=== PATIENT | male | born 1970 | race Hispanic/Latino ===

== ENCOUNTER 2023-10-08 12:22 | Inpatient (IN) | payer BC, OTHER ==
[~2023-10-08 12:22] MED LIST: Iopamidol-370 76% 500 ML MDV (1 ML CHARGE) ONE
[2023-10-08] MEDS ORDERED: Atropine Sulfate 1 mg/10 ml Syringe ONE (12:32)
[2023-10-08] MEDS ORDERED: Aspirin Chewable 81 MG TAB ONE (12:35)
[2023-10-08] MEDS ORDERED: Ondansetron PF 4 MG/2 ML Vial ONE (12:35)
[2023-10-08] MEDS ORDERED: fentaNYL 50 mcg/mL 1 mL Vial ONE (12:58)
[2023-10-08 12:59] LABS: #Basophils 0.1 thou/uL (0.0-0.2); #Eosinphils 0.8 thou/uL (0.0-0.7); #Monocytes 0.7 thou/uL (0.11-0.59); #Neutrophils 7.2 thou/uL (1.40-6.50); %Basophils 0.8 % (0.0-1.0); %Eosinophils 6.9 % (0.0-10.0); %Monocytes 6.4 % (0.0-10.0); %Neutrophils 63.3 % (42.0-75.0); Hematocrit 51.3 % (42.0-52.0); Hemoglobin 17.8 g/dL (14.0-18.0); Mean Corpuscular HGB CONC 34.7 g/dL (32.0-36.0); Mean Corpuscular Hemoglobin 32.1 pg (27.0-31.0); Mean Corpuscular Volume 92.4 fl (78.0-98.0); Mean Platelet Volume 9.2 fL (7.4-10.4); Platelet Count 289 10x3/uL (130-400); RBC Distribution Width 13.3 % (11.5-14.5); Red Blood Cell (RBC) Count 5.55 mill/uL (4.70-6.10); White Blood Cell (WBC) Count 11.4 10x3/uL (4.8-10.8)
[2023-10-08] MEDS ORDERED: methylPREDNISolone Sod Succ 40 MG VIAL ONE (13:06)
[2023-10-08] MEDS ORDERED: Famotidine/PF 20 mg/2ml Vial ONE (13:06)
[2023-10-08] MEDS ORDERED: diphenhydrAMINE 50 MG/ML VIAL ONE (13:06)
[2023-10-08 13:19] LABS: ALT (SGPT) 13 U/L (8-55); AST (SGOT) 20 U/L (5-34); Albumin 4.6 g/dL (3.5-5.0); Alkaline Phosphatase 70 U/L (40-110); Anion Gap 14 mmol/L (10-20); BUN (Urea Nitrogen) 10 mg/dL (8.4-25.7); Calc. Creatinine Clearance 0 mL/min (70-130); Calcium 9.9 mg/dL (7.8-10.44); Carbon Dioxide 23 mmol/L (22-29); Chloride 103 mmol/L (98-107); Estimated GFR 93; Globulin 3.3 g/dL (2.4-3.5); Glucose 145 mg/dL (70-105); Lipase 32 U/L (8-78); Protein, Total 7.9 g/dL (6.0-8.3); Sodium 136 mmol/L (136-145)
[2023-10-08 13:33] LABS: Acetaminophen Less than 10 mcg/mL (10.0-30.0); Alcohol Less than 10.0 mg/dL (Less than 10); Magnesium 2.2 mg/dL (1.6-2.6); Salicylate Less than 8.0 mg/dL (15.0-30.0)
[2023-10-08 13:57] LABS: PTT 29.8 sec (22.9-36.1); Prothrombin Time 13.4 sec (12.0-14.7)
[2023-10-08] MEDS ORDERED: Senokot S 8.6-50 MG TAB PO PRN (14:41)
[2023-10-08] MEDS ORDERED: Lorazepam 1 MG TAB PO PRN (14:41)
[2023-10-08] MEDS ORDERED: Bisacodyl 5 MG TAB PO PRN (14:41)
[2023-10-08] MEDS ORDERED: Ondansetron ODT 4 MG TAB PO PRN ×2 (14:41)
[2023-10-08] MEDS ORDERED: Acetaminophen 650 MG Suppository PR PRN (14:41)
[2023-10-08] MEDS ORDERED: Ondansetron PF 4 MG/2 ML Vial IVP PRN (14:41)
[2023-10-08] MEDS ORDERED: Guaifenesin DM 100-10/5 ML UDCUP PO PRN (14:41)
[2023-10-08] MEDS ORDERED: Acetaminophen 325 MG TAB PO PRN (14:41)
[2023-10-08] MEDS ORDERED: Lorazepam 2 MG/ML VIAL IM PRN (14:41)
[2023-10-08] MEDS ORDERED: Bisacodyl 10 MG SUPP PR PRN (14:41)
[2023-10-08] MEDS ORDERED: Electrolyte Replacement Protocol 1 EACH FS SCH (14:45)
[2023-10-08 17:17] LABS: Lactic Acid 2.2 mmol/L (0.5-2.2)
[2023-10-08] MEDS: Sodium Chloride 0.9% 1,000 ML IV SCH (17:24)
[2023-10-08] MEDS: Thiamine HCl 200 MG/2 ML VIAL SLOW IVP SCH (17:24)
[2023-10-08] MEDS: Lorazepam 1 MG TAB PO SCH (17:24)
[2023-10-08 17:29] LABS: Critical Call Chem Troponin I NUR.SM29 @1729; Troponin I 0.366 ng/mL (< 0.028)
[2023-10-08 18:03] VITALS: BMI 27.9
[2023-10-08] MEDS: Enoxaparin 100 MG (1 mL) SYRINGE SC SCH (18:23)
[2023-10-08] MEDS: Multivit, Therapeutic 1 TAB PO SCH (21:31)
[2023-10-08] MEDS: Folic Acid 1 MG TAB PO SCH (21:31)
[2023-10-08 22:33] LABS: Critical Call Chem Troponin I NUR.CL11@2230; Troponin I 0.565 ng/mL (< 0.028)
[2023-10-09 05:13] LABS: #Eosinphils 0.1 thou/uL (0.0-0.7); #Monocytes 0.6 thou/uL (0.11-0.59); %Basophils 0.4 % (0.0-1.0); %Eosinophils 0.6 % (0.0-10.0); %Lymphocytes 19.9 % (21.0-51.0); %Monocytes 6.9 % (0.0-10.0); %Neutrophils 71.8 % (42.0-75.0); Hematocrit 45.2 % (42.0-52.0); Hemoglobin 15.9 g/dL (14.0-18.0); Mean Corpuscular HGB CONC 35.2 g/dL (32.0-36.0); Mean Corpuscular Hemoglobin 31.9 pg (27.0-31.0); Mean Corpuscular Volume 90.8 fl (78.0-98.0); Mean Platelet Volume 9.1 fL (7.4-10.4); Platelet Count 214 10x3/uL (130-400); RBC Distribution Width 13.2 % (11.5-14.5); Red Blood Cell (RBC) Count 4.98 mill/uL (4.70-6.10); White Blood Cell (WBC) Count 8.4 10x3/uL (4.8-10.8)
[2023-10-09 06:10] LABS: ALT (SGPT) 10 U/L (8-55); AST (SGOT) 20 U/L (5-34); Albumin 3.5 g/dL (3.5-5.0); Alkaline Phosphatase 57 U/L (40-110); Anion Gap 17 mmol/L (10-20); BUN (Urea Nitrogen) 10 mg/dL (8.4-25.7); Bilirubin, Total 0.7 mg/dL (0.2-1.2); Calc. Creatinine Clearance 144 mL/min (70-130); Calcium 8.6 mg/dL (7.8-10.44); Carbon Dioxide 16 mmol/L (22-29); Chloride 110 mmol/L (98-107); Estimated GFR 109; Globulin 2.6 g/dL (2.4-3.5); Glucose 89 mg/dL (70-105); Magnesium 1.7 mg/dL (1.6-2.6); Phosphorus 3.8 mg/dL (2.3-4.7); Protein, Total 6.1 g/dL (6.0-8.3); Sodium 139 mmol/L (136-145)
[2023-10-09] MEDS: Magnesium 2 GM/50 ML(in water) 2 GM in Premix 1 BAG IVPB SCH (08:50)
[2023-10-09] MEDS: Enoxaparin 100 MG (1 mL) SYRINGE SC SCH (08:51)
[2023-10-09] MEDS ORDERED: Enoxaparin 40 MG (0.4 mL) SYRINGE SC SCH (09:00)
[2023-10-09] MEDS ORDERED: Lorazepam 1 MG TAB PO PRN (14:41)
[2023-10-09] MEDS ORDERED: Communication Order-Pharmacy FS SCH (16:15)
[2023-10-09] MEDS ORDERED: CATH FS SCH ×2 (18:00)
[2023-10-09] MEDS: Aspirin 81 mg Enteric Coated Tablet PO SCH (21:23)
[2023-10-09] MEDS: HYDROcodone/Acetaminophen 7.5/325 mg Tablet PO PRN (21:23)
[2023-10-09] MEDS: Nitroglycerin 2% Ointment 1 INCH/1 GM Packet TOP SCH (21:23)
[2023-10-10 01:00] LABS: Amphetamine Not Detected (NotDetected); Barbiturates Screen Not Detected (NotDetected); Benzodiazepine Screen Not Detected (NotDetected); Cocaine Metabolite Screen Not Detected (NotDetected); Methadone Not Detected (NotDetected); Methamphetamine Not Detected (NotDetected); Opiate Screen Not Detected (NotDetected); Oxycodone Screen Not Detected (NotDetected); Phencyclidine (PCP) Not Detected (NotDetected); THC/Cannabinoid Screen Detected (NotDetected); Tricyclic Screen Not Detected (NotDetected)
[2023-10-10 04:28] LABS: #Basophils 0.1 thou/uL (0.0-0.2); #Eosinphils 0.4 thou/uL (0.0-0.7); #Monocytes 0.5 thou/uL (0.11-0.59); #Neutrophils 3.1 thou/uL (1.40-6.50); %Eosinophils 6.6 % (0.0-10.0); %Neutrophils 52.1 % (42.0-75.0); Hematocrit 46.7 % (42.0-52.0); Hemoglobin 16.1 g/dL (14.0-18.0); Mean Corpuscular HGB CONC 34.5 g/dL (32.0-36.0); Mean Corpuscular Volume 92.8 fl (78.0-98.0); Mean Platelet Volume 9.1 fL (7.4-10.4); Platelet Count 239 10x3/uL (130-400); RBC Distribution Width 13.6 % (11.5-14.5); Red Blood Cell (RBC) Count 5.03 mill/uL (4.70-6.10)
[2023-10-10 05:01] LABS: ALT (SGPT) 14 U/L (8-55); AST (SGOT) 19 U/L (5-34); Albumin 3.9 g/dL (3.5-5.0); Alkaline Phosphatase 56 U/L (40-110); Anion Gap 12 mmol/L (10-20); BUN (Urea Nitrogen) 13 mg/dL (8.4-25.7); Bilirubin, Total 0.7 mg/dL (0.2-1.2); Calc. Creatinine Clearance 133 mL/min (70-130); Carbon Dioxide 21 mmol/L (22-29); Cardiac Risk 4.7 (Less than 4.5); Chloride 110 mmol/L (98-107); Cholesterol 225 mg/dl (< 200 Desired); Estimated GFR 106; Globulin 2.5 g/dL (2.4-3.5); Glucose 88 mg/dL (70-105); HDL Cholesterol 48 mg/dL (>60 Neg Risk); LDL Cholesterol, Calculated 155 mg/dL; Potassium 3.9 mmol/L (3.5-5.1); Protein, Total 6.4 g/dL (6.0-8.3); Sodium 139 mmol/L (136-145); Triglycerides 110 mg/dL (Less than 150)
[2023-10-10 05:07] LABS: Critical Call Chem Troponin I NUR.CL11@0507; Troponin I 0.433 ng/mL (< 0.028)
[2023-10-10] MEDS: Sodium Chloride 0.9% 1,000 ML IV SCH ×2 (06:05→15:17)
[2023-10-10] MEDS ORDERED: Heparin 10,000 UNITS/ 10 ML VIAL ONE (06:06)
[2023-10-10] MEDS ORDERED: Lidocaine 1% (PF) 30 ML VIAL ONE (06:06)
[2023-10-10] MEDS ORDERED: fentaNYL 50 mcg/mL 1 mL Vial ONE (07:05)
[2023-10-10] MEDS ORDERED: Midazolam HCl 2 mg/2 ml Vial ONE (07:05)
[2023-10-10] MEDS ORDERED: Protamine Sulfate 50 MG/5 ML VIAL ONE (07:09)
[2023-10-10] MEDS ORDERED: TICAGRELOR 90 MG TABLET ONE (07:41)
[2023-10-10] MEDS ORDERED: Nitroglycerin 0.4 MG TAB (25 Tab Bottle) SL PRN (08:33)
[2023-10-10] MEDS: TICAGRELOR 90 MG TABLET PO SCH (09:35)
[2023-10-10] MEDS: Aspirin 81 mg Enteric Coated Tablet PO SCH (09:37)
[2023-10-10] MEDS: Aspirin Chewable 81 MG TAB PO SCH (09:37)
[2023-10-10] MEDS ORDERED: Morphine 2 MG/ML VIAL ONE (11:07)
[2023-10-10] MEDS: Morphine 2 MG/ML VIAL SLOW IVP PRN (11:10)
[2023-10-10] MEDS ORDERED: Iopamidol 370 76% 100 ML VIAL ONE (12:47)
[2023-10-10] MEDS ORDERED: Lorazepam 1 MG TAB PO PRN (14:41)
[2023-10-10] MEDS: Lorazepam 0.5 MG TAB PO SCH (15:04)
[2023-10-10] MEDS: Atorvastatin Calcium 40 MG TAB PO SCH (21:00)
[2023-10-11 04:52] LABS: #Basophils 0.1 thou/uL (0.0-0.2); #Eosinphils 0.5 thou/uL (0.0-0.7); #Monocytes 0.8 thou/uL (0.11-0.59); %Basophils 0.8 % (0.0-1.0); %Eosinophils 6.6 % (0.0-10.0); %Lymphocytes 17.9 % (21.0-51.0); %Monocytes 9.7 % (0.0-10.0); %Neutrophils 64.6 % (42.0-75.0); Hematocrit 48.5 % (42.0-52.0); Hemoglobin 16.7 g/dL (14.0-18.0); Mean Corpuscular HGB CONC 34.4 g/dL (32.0-36.0); Mean Corpuscular Hemoglobin 31.7 pg (27.0-31.0); Mean Corpuscular Volume 92.2 fl (78.0-98.0); Mean Platelet Volume 9.1 fL (7.4-10.4); Platelet Count 235 10x3/uL (130-400); RBC Distribution Width 13.4 % (11.5-14.5); Red Blood Cell (RBC) Count 5.26 mill/uL (4.70-6.10); White Blood Cell (WBC) Count 7.8 10x3/uL (4.8-10.8)
[2023-10-11 05:07] LABS: ALT (SGPT) 13 U/L (8-55); AST (SGOT) 23 U/L (5-34); Albumin 3.8 g/dL (3.5-5.0); Alkaline Phosphatase 59 U/L (40-110); Anion Gap 14 mmol/L (10-20); BUN (Urea Nitrogen) 8 mg/dL (8.4-25.7); Calc. Creatinine Clearance 142 mL/min (70-130); Carbon Dioxide 18 mmol/L (22-29); Chloride 110 mmol/L (98-107); Estimated GFR 108; Globulin 2.7 g/dL (2.4-3.5); Glucose 94 mg/dL (70-105); Protein, Total 6.5 g/dL (6.0-8.3); Sodium 138 mmol/L (136-145)
[2023-10-11 08:48] VITALS: TEMP 97.7
[2023-10-11] MEDS: Thiamine 100 MG TAB PO SCH (09:30)
[2023-10-11 11:06] VITALS: BP 135/74
[2023-10-11] MEDS ORDERED: Lorazepam 0.5 MG TAB PO PRN (14:41)
== END 2023-10-11 11:30 | disposition home or self-care (01) | DRG 322 ==
LOC: ERS 12:22 → 2SE 15:26 → 2SW 10-10 18:15
PROVIDERS: ADMIT Internal Medicine; ATTEND Internal Medicine
PROC: 027034Z Dilation of Coronary Artery, One Artery with Drug-eluting Intraluminal Device, Percutaneous Approach (ICD-10-PCS; 2023-10-08)
PROC: 4A023N7 Measurement of Cardiac Sampling and Pressure, Left Heart, Percutaneous Approach (ICD-10-PCS; principal; 2023-10-10)
PROC: B2151ZZ Fluoroscopy of Left Heart using Low Osmolar Contrast (ICD-10-PCS; 2023-10-10)
PROC: B2111ZZ Fluoroscopy of Multiple Coronary Arteries using Low Osmolar Contrast (ICD-10-PCS; 2023-10-10)
DX: I21.4 Non-ST elevation (NSTEMI) myocardial infarction (principal); R00.1 Bradycardia, unspecified; R11.2 Nausea with vomiting, unspecified; Z91.013 Allergy to seafood; F17.210 Nicotine dependence, cigarettes, uncomplicated; Z82.49 Family history of ischemic heart disease and other diseases of the circulatory system; Z83.3 Family history of diabetes mellitus; F32.A Depression, unspecified; F41.9 Anxiety disorder, unspecified; Z79.899 Other long term (current) drug therapy; E78.00 Pure hypercholesterolemia, unspecified; F12.90 Cannabis use, unspecified, uncomplicated
CPT/HCPCS: 36415; 71045; 71275; 74174; 80053; 80061; 80306; 80307; 83605; 83690; 83735; 83880; 84100; 84484; 85025; 85347; 85610; 85730; 92928; 93005; 93010; 93306; 93458; 93798; 96374; 96375; 99152; 99153; C1725; C1769; C1874; C1887; C9600; J0461; J1200; J1644; J1650; J2001; J2250; J2272; J2405; J2720; J2920; J3010; J3411; J3475; J7050; Q9967; S0028